=== PATIENT | male | born 1995 | race Caucasian/White ===

== ENCOUNTER 2017-08-10 23:46 | Emergency (ER) | payer BC ==
[~2017-08-10] VITALS: Ht 180.3 cm; Wt 75.1 kg
[2017-08-10 23:50] VITALS: TEMP 36.5; Ht 180.3 cm; Wt 75.1 kg
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
[2017-08-11] MEDS ORDERED: CYCLOBENZAPRINE HCL 5 MG TAB PO STA (00:23)
[2017-08-11 00:40] LABS: ISTAT CREATININE 0.8 mg/dl (0.6-1.3); ISTAT IONIZED CALCIUM 1.12 mmol/l (1.12-1.32); ISTAT POTASSIUM 3.7 mEq/L (3.3-5.0)
[2017-08-11] MEDS ORDERED: KETOROLAC TROMETHAMINE 60 MG/2 ML VIAL IM STA (01:22)
[2017-08-11] MEDS ORDERED: CYCL5TAB PO (03:13)
[2017-08-11 03:38] VITALS: BP 136/86; PULSE 63; O2SAT 98
--- NOTE | 2017-08-11 07:43 | DIAGNOSTIC IMAGING REPORT ---
L RIBS UNILATERAL WITH PA CHEST CLINICAL HISTORY: 22 years-old Male presenting with left lower rib pain, hx trauma while playing basketball. TECHNIQUE: Frontal and oblique views of the left ribs as well as PA view of the chest were obtained. COMPARISON: None. FINDINGS: Cardiomediastinal silhouette normal. No focal opacity. No large effusion or pneumothorax. No displaced left rib fracture. Upper abdomen normal. IMPRESSION: 1. No displaced left rib fracture. 2. No acute cardiopulmonary disease. Electronically signed by: Jesus Manuel Mayer M.D. 08/11/2017 7:42 AM Dictated Date/Time: 08/11/2017 7:41 AM
== END 2017-08-11 03:39 | disposition home or self-care (01) ==
LOC: C.EDB 23:47
DX: R07.81 Pleurodynia (principal); Z91.048 Other nonmedicinal substance allergy status